=== PATIENT | male | born 1970 | race Caucasian/White ===

== ENCOUNTER 2017-02-27 07:30 | Day surgery (SDC) | payer BC ==
[~2017-02-27] VITALS: Ht 177.8 cm; Wt 105.0 kg
[~2017-02-27 07:30] MED LIST: BUPIVACAINE/PF 0.5% ONE; EPINEPHRINE 1 MG/ML, 1ML ONE; LIDOCAINE 1%, 50ML ONE
[2017-02-27] MEDS ORDERED: DEXAMETHASONE 4 MG/ML, 1ML ONE (07:41)
[2017-02-27] MEDS ORDERED: MIDAZOLAM 1 MG/ML, 2ML ONE (07:41)
[2017-02-27] MEDS ORDERED: PROPOFOL 10 MG/ML, 20ML ONE (07:41)
[2017-02-27] MEDS ORDERED: FENTANYL PF 250 MCG/5ML ONE (07:41)
[2017-02-27] MEDS ORDERED: ONDANSETRON 2MG/ML, 2ML ONE (07:41)
[2017-02-27] MEDS ORDERED: CEFAZOLIN 1,000 MG ONE (07:41)
[2017-02-27] MEDS ORDERED: BUPIVACAINE/PF 0.5% ONE (07:43)
[2017-02-27] MEDS ORDERED: LIDOCAINE-MPF 2% ,5ML ONE ×3 (07:43→08:29)
[2017-02-27 08:05] VITALS: BP 148/102
[2017-02-27 08:17] VITALS: BP 153/95
[2017-02-27] MEDS ORDERED: LACTATED RINGERS 1,000 ML IV SCH (08:18)
[2017-02-27] MEDS ORDERED: LEVO112T4 PO (08:20)
[2017-02-27] MEDS ORDERED: ALBU8.5H8 INH (08:20)
[2017-02-27] MEDS ORDERED: ROCURONIUM 10MG/ML,5ML ONE (09:44)
[2017-02-27] MEDS ORDERED: SUCCINYLCHOLINE 20 MG/ML, 10ML ONE (09:44)
[2017-02-27] MEDS ORDERED: LABETALOL 5MG/ML, 20ML ONE (09:44)
[2017-02-27] MEDS ORDERED: LIDOCAINE GEL 2%, 5ML ONE (10:07)
[2017-02-27] MEDS ORDERED: LABETALOL 5MG/ML, 20ML IV PRN (11:30)
[2017-02-27] MEDS ORDERED: MIDAZOLAM 1 MG/ML, 2ML IV PRN (11:30)
[2017-02-27] MEDS ORDERED: HYDROmorphone 1 MG/ML, 1ML IV PRN (11:30)
[2017-02-27] MEDS ORDERED: MEPERIDINE/PF 25MG/0.5ML IVPush PRN (11:30)
[2017-02-27] MEDS ORDERED: ONDANSETRON 2MG/ML, 2ML IVPush PRN (11:30)
[2017-02-27] MEDS ORDERED: FENTANYL PF 100 MCG/2ML IV PRN (11:30)
[2017-02-27] MEDS ORDERED: LORazepam 2 MG/ML, 1ML IVPush PRN (11:30)
[2017-02-27] MEDS ORDERED: ALBUTEROL/IPRATROPIUM 2.5MG/0.5MG, 3 ML NPPB PRN (11:30)
[2017-02-27] MEDS ORDERED: KETOROLAC 30 MG/1 ML IV PRN (11:30)
[2017-02-27] MEDS ORDERED: OXYcodone 5 MG/5 ML ORAL.SOL UDC PO PRN (11:30)
[2017-02-27] MEDS ORDERED: PROMETHAZINE 25 MG/ML, 1ML IV PRN (11:30)
[2017-02-27] MEDS ORDERED: ACETAMINOPHEN 325 MG TABLET PO PRN (11:30)
[2017-02-27] MEDS ORDERED: hydrALAzine 20 MG/ML, 1ML IV PRN (11:30)
[2017-02-27] MEDS ORDERED: ALBUTEROL/IPRATROPIUM 2.5MG/0.5MG, 3 ML ONE (11:36)
== END 2017-02-27 13:45 ==
LOC: OUT 07:30
PROVIDERS: ATTEND Orthopaedic Surgery
DX: S43.432A Superior glenoid labrum lesion of left shoulder, initial encounter (principal); M75.112 Incomplete rotator cuff tear or rupture of left shoulder, not specified as traumatic; M19.012 Primary osteoarthritis, left shoulder; M75.42 Impingement syndrome of left shoulder; X58.XXXA Exposure to other specified factors, initial encounter; Y93.89 Activity, other specified; Y92.89 Other specified places as the place of occurrence of the external cause; Y99.8 Other external cause status; F17.200 Nicotine dependence, unspecified, uncomplicated
CPT/HCPCS: 29823; 29824; 29826; 94640; J0171; J0330; J0690; J1100; J2250; J2405; J2704; J3010; J3490; J7120; J7620